=== PATIENT | male | born 1995 | race Hispanic/Latino ===

== ENCOUNTER 2019-01-20 07:56 | Emergency (ER) | payer OTHER | END 2019-01-20 09:04 | disposition home or self-care (01) | LOC: EDH 07:56 | DX: J09.X2 Influenza due to identified novel influenza A virus with other respiratory manifestations (principal); J45.909 Unspecified asthma, uncomplicated; Z88.0 Allergy status to penicillin; Z88.2 Allergy status to sulfonamides; Z72.0 Tobacco use | CPT/HCPCS: 87880 ==